=== PATIENT | female | born 1985 | race Caucasian/White ===

== ENCOUNTER 2017-11-22 06:07 | Inpatient (IN) | payer OTHER ==
--- NOTE | 2017-11-22 04:53 | HP ---
General Information - Reason for Visit Mrs Fischer is a 32 y/o lady with a at 38 1/7 weeks EGA. Her is complicated by Diabetes(insulin dependent), Obesity (BMI 38), macrosomia on ultrasound and a history of shoulder dystocia with clavicular fracture of the in prior . - General Information Maternal Age: 32 Grav: 3 Para: 1 SAB: 1 IEA: 0 Estimated Due Date: 12/05/17 Determined By: LMP - confirmed by 8 week ultrasound Gestational Age in Weeks/Days: 38 1/7 Maternal Blood Type and Rh: B Negative - Results this Serology/RPR Result: Non-Reactive Rubella Result: Immune HBsAg Result: Negative HIV Result: Negative GBS Culture Result: Negative Past Medical History Delivery History: See Records - 2012 Vaginal delivery-Shoulder dystocia (clavicular fracture), 7 lbs 70z female Pertinent Past Medical History: See Records Past Medical History Comment: Type 2 Diabetes on Insulin GERD Depression/Anxiety Pertinent Past Surgical History: See Records - Leep for cervical dysplasia 2014 Pertinent Family History: See Records - Antepartal Records Antepartal Records: Reviewed, Complicated by: - Diabetes, Obesity, Macrosomia, Hx shoulder dystocia prior . Review of Systems Constitutional: Comfortable CV Complaint: No Respiratory: Shortness of Breath: No Gastrointestinal: No Nausea/Vomiting, Normal Bowel Movement Genitourinary: No Dysuria, No Bleeding, No Leaking Fluid Musculoskeletal: No Complaint, No Epigastric Pain Neurological: No Headache, No Visual Changes Movement: Normal Exam Allergies/Adverse Reactions: Allergies No Known Allergies Allergy (Verified 11/21/17 15:20) 11/16/17 Vitals Temp 98.7, BP122/84, Pulse 72, RR 18 - Measurements Height: 5 ft 6 in Weight: 256 lb Weight in lbs: [phone] Body Mass Index (BMI): 41.3 Pre- Weight: 228 lb Weight Gained This : 28 lbs and 0 ozs - Exam Breast: Breast Exam Deferred CVA: No CVA Tenderness Extremities: No Edema Heart: Normal Rhythm/Heart Sounds HEENT: No Significant Findings Lungs: Clear Bilaterally Rectal: Rectal Exam Deferred Reflexes: DTR 2+ Thyroid: No Thyromegaly - Abdominal Exam Abdomen Exam: Non-Tender, Fundal Height Consistent with Dates - Ultrasound/Biophysical Profile Ultrasound Status: Not Done Targeted Exam Findings See L&D Outpatient Visit Provider Note for Findings: N/A Cervical Exam: Closed Effacement: <50%, 50% Station: -1 Presenting Part: Vertex Membrane Status: Intact Bleeding/Discharge: None EFM Findings - External Monitor Findings Baseline Heart Rate: 140 External Monitor Findings: Accelerations Present Contractions: None Assessment/Plan - Assessment at 38 1/7 weeks, complicated by diabetes, obesity, macrosomia on ultrasound and severe shoulder dystocia with prior delivery. - Obstetrical Risk Factors Obstetrical Risk Factors: Obesity, Diabetes Risk Factors Comment: See HPI - Plan Plan: IV Hydration, Antibiotic Prophylaxis, C/S Delivery - Date/Time of Admission Date of Admission: 11/22/17 Time of Admission: 07:00
[~2017-11-22 06:07] MED LIST: Buffered Lidocaine 0.9% SYRIN* 5 ML/SYR SYRINGE INTRADERM ONE; Sodium Citrate/Citric Acid* 15 ML UDC PO ONE
[2017-11-22] MEDS ORDERED: ceFOXitin 2 GM IVPREMIX* 2 GM/50 ML BAG IVPB ONE (07:00)
[2017-11-22] MEDS ORDERED: Phenylephrine IV* 40 MCG/ML 10 ML SYRINGE ONE (07:40)
[2017-11-22] MEDS ORDERED: OXYTOCIN* 10 UNITS/ML 1 ML VIAL ONE (07:40)
[2017-11-22] MEDS ORDERED: Bupivacaine-MPF SPINAL* 7.5 MG/ML - 2ML AMP ONE (07:40)
[2017-11-22] MEDS ORDERED: Lidocaine 2% PF * 5 ML VIAL ONE ×2 (07:40→09:09)
[2017-11-22] MEDS ORDERED: Morphine PF AMP (0.5MG/ML)* 5 MG/10 ML AMP ONE (07:41)
[2017-11-22] MEDS ORDERED: Ondansetron INJ* 2 MG/ML VIAL ONE ×2 (09:09→09:17)
[2017-11-22] MEDS ORDERED: Metoclopramide IV* 5 MG/ML 2 ML VIAL ONE (09:17)
[2017-11-22] MEDS ORDERED: Naloxone* 0.4 MG/ML 1 ML VIAL IV PRN ×2 (09:41→09:44)
[2017-11-22] MEDS ORDERED: fentaNYL* 50 MCG/ML 2 ML VIAL (100 MCG VIAL) IV PRN (09:41)
[2017-11-22] MEDS ORDERED: DiMENhydriNATE IV* 50 MG/ML VIAL IV PUSH PRN (09:41)
[2017-11-22] MEDS ORDERED: Nalbuphine* 10 MG/ML 1 ML VIAL IV PRN (09:44)
[2017-11-22] MEDS ORDERED: Ondansetron INJ* 2 MG/ML VIAL IV PRN (09:44)
[2017-11-22] MEDS ORDERED: oxyCODONE/Acetamin 5/325 MG* TAB PO PRN ×2 (09:44→09:50)
[2017-11-22] MEDS ORDERED: diPHENhydraMINE IV* 50 MG/ML 1 ml VIAL (BENADRYL) IV PRN (09:44)
[2017-11-22] MEDS ORDERED: Acetaminophen TAB* 325 MG PO PRN (09:50)
[2017-11-22] MEDS ORDERED: Witch Hazel PAD* JAR TOPICAL PRN (09:50)
[2017-11-22] MEDS ORDERED: Dibucaine 1% 28.35 GM TUBE PR PRN (09:50)
[2017-11-22] MEDS ORDERED: Glycerin ADULT SUPP PR PRN (09:50)
[2017-11-22] MEDS ORDERED: Zolpidem TAB* 5 MG PO PRN (09:50)
[2017-11-22] MEDS ORDERED: Ibuprofen TAB* 600 MG PO PRN (09:50)
[2017-11-22] MEDS: Ketorolac INJ* 30 MG/ML 1 ML VIAL IV PRN ×3 (10:50→23:08)
[2017-11-22] MEDS: Insulin LISPRO* 1 UNITS UNIT SUBCUT SCH ×3 (11:30→19:30)
[2017-11-22] MEDS: Simethicone TAB* 80 MG TAB.CHEW PO SCH ×4 (12:30→21:25)
[2017-11-22] MEDS: Docusate CAP* 100 MG PO SCH ×2 (14:24→21:25)
[2017-11-22] MEDS: oxyCODONE/Acetamin 5/325 MG* TAB PO PRN ×2 (17:50→21:50)
[2017-11-23] MEDS: oxyCODONE/Acetamin 5/325 MG* TAB PO PRN ×6 (01:34→23:06)
--- NOTE | 2017-11-23 04:53 | OP ---
DATE OF OPERATION: 11/22/17 - ROOM #116 DATE OF : 87 SURGEON: Lion Arzola MD COMPUTER AIDE: Dr. Perkins. ANESTHESIA: Spinal. PRE-OP DIAGNOSES: 1. at 38 weeks, estimated gestational age. 2. Maternal obesity. 3. Diabetes insulin dependent with a history of prior shoulder dystocia. 4. The patient desires permanent surgical sterilization. POST-OP DIAGNOSES: 1. at 38 weeks, estimated gestational age. 2. Maternal obesity. 3. Diabetes insulin dependent with a history of prior shoulder dystocia. 4. The patient desires permanent surgical sterilization. OPERATIVE PROCEDURE: Primary low transverse section with a bilateral tubal fimbriectomy, vacuum assistance of the delivery of the head. ESTIMATED BLOOD LOSS: 600 cc. SPECIMEN SENT TO PATHOLOGY: Cord blood and bilateral fallopian fimbriae and tubes. FLUIDS: She received 3100 cc of IV crystalloid fluid. URINE OUTPUT: Clear at 150 cc. FINDINGS: Delivery of a female infant weighing 8 pounds 8 ounces with Apgars of 9 and 9. Placenta was grossly intact with 3-vessel cord noted. The uterus, adnexa, bowel and bladder were within normal limits and there were no complications. DESCRIPTION OF PROCEDURE: The patient was taken to the operating room where she was identified. She was placed on the operating table where a spinal anesthetic was obtained without difficulty. She was then placed in the supine position with the leftward tilt, prepped and draped in normal sterile fashion. A Pfannenstiel skin incision was made with a knife and carried through to the underlying layer of fascia. The fascia was nicked in the midline and extended laterally with curved Felix scissors. The fascia was then grasped superiorly and inferiorly with Juani clamps and dissected off sharply from the rectus muscle. The rectus muscle was in the midline bluntly. The peritoneum was identified, grasped with pickups and entered sharply with Metzenbaum scissors and extended superiorly and inferiorly sharply. At this point, a ring retractor was inserted into the patient's abdomen, after which a bladder flap was created using Metzenbaum scissors. A low transverse skin incision was then made with a knife and extended laterally with bandage scissors. The amniotic sac was ruptured. The fluid was noted to be clear. The infant's body was then grasped and delivered with vacuum assistance atraumatically. The rest of the 's body was then delivered. The cord was clamped and cut. The was then handed off to awaiting sales and customer relations rep. Cord bloods were obtained. The placenta was removed manually. The uterus incision was then closed in-situ using 0 Polysorb suture in a running locked fashion with a second imbricating layer of 0 Polysorb suture with good hemostasis noted. At this point, we proceeded to perform a bilateral tubal ligation via fimbriectomy in the usual fashion using 3-0 Polysorb sutures. Left portion of the fimbriae, left and right were sent to pathology. After the tubal ligation, we proceeded to remove the ring, retracted from the patient's abdomen. The gutters were then cleared of clots and debris using moist laparotomy sponges. The uterine incision was noted to be hemostatic. The peritoneum was then closed using 3-0 Polysorb suture in a running fashion. The fascia was closed using 0 Polysorb suture in a running fashion and the Torsten's layer was then closed using a 3-0 Polysorb suture with interrupted stitches. The skin was closed using 4-0 Monocryl in a subcuticular stitch. The patient tolerated the procedure well. Sponge, lap, needle counts were correct x2. She was then transferred to recovery room area in a stable condition. [id number]/[facility] #: [id number] MARLEE
[2017-11-23] MEDS: Ketorolac INJ* 30 MG/ML 1 ML VIAL IV PRN (05:05)
[2017-11-23 07:40] LABS: Hematocrit 28 % (35-47); Mean Corpuscular HGB Conc 32 g/dl (31-36); Mean Corpuscular Hemoglobin 23 pg (27-31); Mean Corpuscular Volume 72 fL (80-97); Mean Platelet Volume 8.2 um3 (7.4-10.4); Platelet Count 285 10^3/ul (150-450); Red Blood Count 3.86 10^6/ul (4.00-5.40); Red Cell Distribution Width 21 % (10.5-15); White Blood Count 11.7 10^3/ul (3.5-10.8)
[2017-11-23] MEDS: Insulin LISPRO* 1 UNITS UNIT SUBCUT SCH (07:43)
[2017-11-23 07:59] LABS: ABS Basophils 0 10^3/ul (0-0.2); ABS Eosinophils 0.2 10^3/ul (0-0.6); ABS Lymphocytes 2.6 10^3/ul (1.0-4.8); ABS Monocytes 0.8 10^3/ul (0-0.8); ABS Neutrophils 8.2 10^3/ul (1.5-7.7); ABS Nucleated RBC 0 10^3/ul; Eosinophil % 1.6 % (0-6); Lymphocyte % 21.9 % (25-47); Nucleated Red Blood Cells % 0
[2017-11-23] MEDS: Ferrous Gluconate TAB* 324 MG TAB PO SCH ×2 (09:20→20:00)
[2017-11-23] MEDS: Docusate CAP* 100 MG PO SCH ×3 (09:20→20:00)
[2017-11-23] MEDS: Simethicone TAB* 80 MG TAB.CHEW PO SCH ×4 (09:21→20:00)
[2017-11-23] MEDS: Ibuprofen TAB* 600 MG PO PRN ×3 (11:27→23:57)
[2017-11-23] MEDS: glyBURIDE TAB* 5 MG PO SCH (14:39)
[2017-11-24] MEDS: glyBURIDE TAB* 5 MG PO SCH (00:05)
[2017-11-24] MEDS: oxyCODONE/Acetamin 5/325 MG* TAB PO PRN ×3 (02:53→12:33)
[2017-11-24] MEDS: Ibuprofen TAB* 600 MG PO PRN ×2 (06:00→12:33)
[2017-11-24 08:25] VITALS: BP 139/72
[2017-11-24] MEDS ORDERED: glyBURIDE TAB* 5 MG PO SCH (09:00)
[2017-11-24] MEDS: Simethicone TAB* 80 MG TAB.CHEW PO SCH ×2 (09:22→12:33)
[2017-11-24] MEDS: Ferrous Gluconate TAB* 324 MG TAB PO SCH (09:22)
[2017-11-24] MEDS: Docusate CAP* 100 MG PO SCH (09:22)
== END 2017-11-24 13:27 | disposition home or self-care (01) | DRG 783 ==
LOC: MCHOB 06:07
PROVIDERS: ADMIT Obstetrics & Gynecology; ATTEND Obstetrics & Gynecology
PROC: 0UB70ZZ Excision of Bilateral Fallopian Tubes, Open Approach (ICD-10-PCS; 2017-11-22)
PROC: 4A1HX4Z Monitoring of Products of Conception, Cardiac Electrical Activity, External Approach (ICD-10-PCS; 2017-11-22)
PROC: 10D00Z1 Extraction of Products of Conception, Low, Open Approach (ICD-10-PCS; principal; 2017-11-22 07:45)
DX: O36.63X0 Maternal care for excessive fetal growth, third trimester, not applicable or unspecified (principal); O24.12 Pre-existing type 2 diabetes mellitus, in childbirth; O98.52 Other viral diseases complicating childbirth; O99.214 Obesity complicating childbirth; B00.9 Herpesviral infection, unspecified; E11.9 Type 2 diabetes mellitus without complications; O99.344 Other mental disorders complicating childbirth; F32.9 Major depressive disorder, single episode, unspecified; F41.9 Anxiety disorder, unspecified; O34.211 Maternal care for low transverse scar from previous cesarean delivery; Z3A.38 38 weeks gestation of pregnancy; Z37.0 Single live birth; Z67.21 Type B blood, Rh negative; Z30.2 Encounter for sterilization; O90.81 Anemia of the puerperium
CPT/HCPCS: 36415; 85025; 88302; A9270-GY; J0694; J1885; J2405; J2590; J2765

== ENCOUNTER 2018-05-15 17:08 | Emergency (ER) | payer OTHER ==
[2018-05-15 19:02] VITALS: BP 125/86
--- NOTE | 2018-05-15 19:17 | UC ---
Throat Pain/Nasal Rory HPI - HPI Summary HPI Summary: 33-year-old woman comes in with chief complaint of about 5 days of upper respiratory tract infection symptoms. She has sinus pressure with yellow rhinorrhea. Minimal sore throat minimal cough no shortness of breath. She is not a smoker. - History of Current Complaint Chief Complaint: UCGeneralIllness Stated Complaint: CONGESTION,COUGH,ST Time Seen by Provider: 05/15/18 19:03 Hx Last Menstrual Period: 05/01/18 Pain Intensity: 3 - Allergies/Home Medications Allergies/Adverse Reactions: Allergies Allergy/AdvReac Type Severity Reaction Status Date / Time No Known Allergies Allergy Verified 05/15/18 18:55 Home Medications: Home Medications Dulaglutide [Trulicity] 0.75 mg SQ WEEKLY 05/15/18 [History Confirmed 05/15/18] PMH/Surg Hx/FS Hx/Imm Hx Previously Healthy: Yes Endocrine History: Diabetes GI/ History: Gastroesophageal Reflux - Surgical History Surgical History: Yes Surgery Procedure, Year, and Place: tonsillectomy and adenoidectomy as a child - Family History Known Family History: Positive: Non-Contributory - Social History Alcohol Use: None Substance Use Type: None Smoking Status (MU): Never Smoked Tobacco Type: Cigarettes When Did the Patient Quit Smoking/Using Tobacco: 2017 - Immunization History Most Recent Influenza Vaccination: Fall 2013 Most Recent Tetanus Shot: unsure Most Recent Pneumonia Vaccination: None Review of Systems All Other Systems Reviewed And Are Negative: Yes Constitutional: Positive: Negative Skin: Positive: Negative Eyes: Positive: Negative ENT: Positive: Sore Throat, Nasal Discharge, Sinus Congestion, Sinus Pain/ Tenderness Respiratory: Positive: Cough Cardiovascular: Positive: Negative Gastrointestinal: Positive: Negative Motor: Positive: Negative Neurovascular: Positive: Negative Musculoskeletal: Positive: Negative Neurological: Positive: Negative Psychological: Positive: Negative Is Patient Immunocompromised?: No Physical Exam Triage Information Reviewed: Yes Appearance: Well-Appearing, No Pain Distress, Well-Nourished Vital Signs: Initial Vital Signs Temp 97.8 F 05/15/18 18:57 Pulse 91 05/15/18 18:57 Resp 22 05/15/18 18:57 BP 125/86 05/15/18 18:57 Pulse Ox 100 05/15/18 18:57 Vital Signs Reviewed: Yes Eye Exam: Normal Eyes: Positive: Conjunctiva Clear ENT: Positive: Pharynx normal, Nasal congestion, TMs normal Neck exam: Normal Neck: Positive: Supple Respiratory: Positive: Lungs clear, Normal breath sounds, No respiratory distress Cardiovascular: Positive: RRR Musculoskeletal Exam: Normal Musculoskeletal: Positive: Strength Intact, ROM Intact Neurological Exam: Normal Neurological: Positive: Alert, Muscle Tone Normal Psychological Exam: Normal Psychological: Positive: Normal Response To Family, Age Appropriate Behavior Skin Exam: Normal Throat Pain/Nasal Course/Dx - Course Course Of Treatment: DISCUSSED VIRAL VERSES BACTERIAL INFECTION AND THE ROLE OF ANTIBIOTICS. THE PATIENT WISHES TO BE ON ANTIBIOTICS AT THIS TIME. - Differential Dx/Diagnosis Provider Diagnosis: Upper respiratory infection Discharge - Sign-Out/Discharge Documenting (check all that apply): Patient Departure All imaging exams completed and their final reports reviewed: No Studies - Discharge Plan Condition: Stable Disposition: HOME Prescriptions: Azithromyxin NINA (NF) [Z-Nina (Zithromax) 250 mg tabs #6] 2 tab PO .TODAY, THEN 1 DAILY #6 tab Patient Education Materials: Upper Respiratory Infection (ED) Referrals: Eulogio Castañeda MD [Primary Care Provider] - Additional Instructions: FOLLOW UP WITH YOUR DOCTOR IF NOT COMPLETELY IMPROVED. GET REEVALUATED SOONER FOR ANY WORSENING OF YOUR CONDITION OR ANY QUESTIONS OR CONCERNS. - Billing Disposition and Condition Condition: STABLE Disposition: Home
== END 2018-05-15 19:55 | disposition home or self-care (01) ==
LOC: UCCORT 17:08
DX: J06.9 Acute upper respiratory infection, unspecified (principal); E11.9 Type 2 diabetes mellitus without complications
CPT/HCPCS: 99212; G0463